=== PATIENT | male | born 1965 | race Caucasian/White ===

== ENCOUNTER → 2016-04-29 | Outpatient (CLI) | payer OTHER ==
--- NOTE | 2016-04-29 09:12 | DX ---
Cervical Spine (AP and Lateral) Clinical Indications: Follow up fusion. Recent fall skiing. Comparison: February 28, 2016. Findings: Degenerative changes anteriorly at C3-C4 are stable. The hardware is intact at C5-C6 and C 6-C7. Disk space at C7-T1 is well maintained. No evidence of fracture. Impression: Stable postoperative anterior fusion and interbody disk spacers at C5-C7.
== END ==
LOC: FIMAGING 08:16
PROVIDERS: ATTEND Orthopaedic Surgery Orthopaedic Surgery of the Spine
DX: M96.1 Postlaminectomy syndrome, not elsewhere classified (principal); Z98.1 Arthrodesis status

== ENCOUNTER → 2017-02-05 | Outpatient (CLI) | payer OTHER | LOC: FIMAGING 09:27 | PROVIDERS: ATTEND Orthopaedic Surgery Orthopaedic Surgery of the Spine | DX: M54.2 Cervicalgia (principal); R20.2 Paresthesia of skin; Z98.1 Arthrodesis status ==